=== PATIENT | male | born 1945 | race Caucasian/White ===

== ENCOUNTER → 2016-12-23 | Day surgery (SDC) | payer OTHER ==
[~2016-12-23] MED LIST: BUPIVACAINE/EPINEPHRINE 0.25% PF 30 ML VIAL ONE; KETOROLAC TROMETHAMINE 30 MG/ML (IVP) VIAL IV PUSH ONE; LACTATED RINGER'S 1000 ML INJ 1,000 ML ONE; MIDAZOLAM HCL 2 MG/2 ML VIAL ONE; NEOMYCIN/POLYMYXIN/BACITRACIN OINT 15 GM TUBE ONE; ONDANSETRON HCL 4 MG/2 ML VIAL IV PUSH ONE; PROPOFOL 200 MG/20 ML AMP IV ONE; ceFAZolin 2 GM PREMIX 50 ML ONE
--- NOTE | 2016-12-23 09:15 | TN ---
cc: DEYSI RODRIGUEZ M.D. DATE OF SURGERY: 12/23/2016 PREOPERATIVE DIAGNOSIS Symptomatic enlarging umbilical hernia. POSTOPERATIVE DIAGNOSIS Symptomatic enlarging umbilical hernia. PROCEDURE PERFORMED Umbilical hernia repair with mesh. SURGEON Deysi Rodriguez RN CLINICAL DOCUMENTATION SPECIALIST Nickie Renee, ROXANN ANESTHESIA General LMA. COMPLICATIONS None. INDICATION FOR PROCEDURE Mr. Stafford is a pleasant 71-year-old gentleman who had a symptomatic enlarging umbilical hernia. He was seen and evaluated in the office and offered elective repair. Risks and benefits of repair with mesh was discussed with him and he was agreeable. DETAILS OF PROCEDURE The patient was identified, brought to the operating room and placed supine on the operating table. After adequate general anesthesia was achieved with an LMA, the anterior abdomen was prepped and draped in standard surgical fashion. The infraumbilical space was anesthetized with 0.25% Marcaine. An infraumbilical incision was made. Dissection was carried down to subcutaneous tissue identifying the umbilical hernia and stalk. The umbilical stalk was carefully dissected off of the hernia sac. The hernia sac was then followed down to the abdominal fascia. The abdominal fascia was then cleaned off circumferentially. The hernia sac was easily reduced back in the abdominal cavity and contained mostly fat by palpation. Attention was now directed to repair. Repair was accomplished using a two-layer technique. First the fascia was brought together primarily using a 0 Prolene suture interrupted x3. Once this was accomplished an onlay mesh was placed. It was secured in the four corners with generous overlap over the fascial defect using a 2-0 Prolene suture. The mesh was secured in the four corners and at the midpoint of the superior and inferior border. With this the defect was well-covered in two layers with generous mesh overlap of the fascia. The wound was copiously irrigated with normal saline solution. The wound was injected with 0.25% Marcaine circumferentially. The umbilical stalk was then tacked down to the abdominal wall using a 2-0 Vicryl suture. 3-0 Vicryl was used to close the subcutaneous tissue and the skin was closed 4-0 Monocryl. Sterile dressings were applied and the patient was awakened and brought to Recovery in stable condition. Please note the presence of the [facility] first assitant was medically necessary due to her specialized surgical skills and knowledge of my surgical technique. MD AMRITA Jalloh /9:05 AM /9:11 AM FRITZ
== END | disposition home or self-care (01) ==
LOC: ESDC 06:33
PROVIDERS: ATTEND Surgery Trauma Surgery
DX: K42.9 Umbilical hernia without obstruction or gangrene (principal)
CPT/HCPCS: 00750; 49585; J0690; J1885; J2250; J2405; J3010; J7120; C1781